=== PATIENT | male | born 1995 | race Caucasian/White ===

== ENCOUNTER 2019-04-14 18:20 | Emergency (ER) | payer SELFPAY ==
[~2019-04-14] VITALS: Ht 172.7 cm; Wt 93.9 kg
[2019-04-14 18:36] VITALS: Ht 172.7 cm; Wt 93.9 kg
[2019-04-14 21:11] VITALS: BP 129/69
== END 2019-04-14 21:11 | disposition home or self-care (01) ==
LOC: ED 18:20
DX: J02.9 Acute pharyngitis, unspecified (principal)
CPT/HCPCS: J1100